=== PATIENT | female | born 1995 | race Asian ===

== ENCOUNTER 2016-11-05 13:59 | Emergency (ER) | payer MEDICAID | END 2016-11-05 15:40 | disposition home or self-care (01) | LOC: D.ER 13:59 | DX: S93.401A Sprain of unspecified ligament of right ankle, initial encounter (principal); V49.9XXA Car occupant (driver) (passenger) injured in unspecified traffic accident, initial encounter; Y93.89 Activity, other specified; Y92.89 Other specified places as the place of occurrence of the external cause; S00.03XA Contusion of scalp, initial encounter ==